=== PATIENT | female | born 1985 | race Caucasian/White ===

== ENCOUNTER 2022-11-30 03:10 | Inpatient (IN) | payer BC ==
[~2022-11-30] VITALS: Ht 144.8 cm; Wt 66.2 kg
== END 2022-11-30 04:05 | disposition left against medical advice (07) | DRG 833 ==
LOC: SPU 03:10
PROVIDERS: ADMIT Obstetrics & Gynecology; ATTEND Obstetrics & Gynecology
DX: O42.92 Full-term premature rupture of membranes, unspecified as to length of time between rupture and onset of labor (principal); O34.211 Maternal care for low transverse scar from previous cesarean delivery; Z53.29 Procedure and treatment not carried out because of patient's decision for other reasons; Z3A.39 39 weeks gestation of pregnancy
CPT/HCPCS: 81002